=== PATIENT | female | born 1965 | race Caucasian/White ===

== ENCOUNTER 2017-09-05 09:58 | Observation (INO) | payer OTHER ==
[2017-09-05] VITALS (10 sets, daily range): BP systolic 123–140; BP diastolic 57–92; PULSE 83–112; RESP 18–20; TEMP 96.6–97.9; O2SAT 95–99
[~2017-09-05 09:58] MED LIST: BUPR150XL PO; FENO2.5C PO; HYDR25TA5 PO; LEVO-86 PO; NORV2.5T PO; PERC5TAB12 PO; ROSU20 PO
--- NOTE | 2017-09-05 10:07 | PD ---
HPI Chief Complaint: Dizziness Time Seen by Provider: 10:05 Travel History International Travel<30 days: No Contact w/Intl Traveler<30days: No Traveled to known affect area: No History of Present Illness HPI Patient complaining of chest pressure nonradiating 7 out of 10, associated with. Without any associated nausea, or shortness of breath. Allergy to phentermine Past medical history significant for hypothyroidism, hypercholesterolemia, asthma, GERD, tubal ligation and ablation, hysterectomy with bladder sling, cervical fusion PFSH Past Medical History Arthritis: Yes Asthma: Yes Blood Disorders: No Cardiovascular Problems: No High Cholesterol: Yes Diabetes: No Diminished Hearing: No Endocrine: Yes GERD: Yes Genitourinary: No Immune Disorder: No Musculoskeletal: Yes (BONE SPUR ON L5, SLIGHT BULGE ON L4) Neurologic: No Psychiatric: No Reproductive: No Respiratory: Yes Thyroid Disease: Yes (HYPOTHYROID) Menopausal: Yes : 3 Para: 3 Tubal Ligation: Yes Past Surgical History Gynecologic Surgery: Yes (TUBAL LIGATION, ABLATION) Hysterectomy: Yes (with bladder sling) Other Surgery: Yes (BLADDER SLING) Social History Alcohol Use: No Tobacco Use: No (HX OF) Substance Use: No Allergies-Medications (Allergen,Severity, Reaction): Coded Allergies: phentermine (Verified Adverse Reaction, Severe, 09/05/17) TACHYCARDIA Reported Meds & Prescriptions Reported Meds & Active Scripts Active Reported Fenofibrate 50 Mg Cap Unknown Dose PO DAILY Crestor (Rosuvastatin Calcium) 20 Mg Tab 20 Mg PO DAILY Synthroid (Levothyroxine Sodium) 137 Mcg Tab 137 Mcg PO DAILY Percocet (Oxycodone-Acetaminophen) 5-325 mg Tab 2 Tab PO TID PRN Hydrochlorothiazide 25 Mg Tab 25 Mg PO DAILY Norvasc (Amlodipine Besylate) 2.5 Mg Tab 2.5 Mg PO DAILY Wellbutrin Xl 24 HR (Bupropion HCl) 150 Mg Tab 150 Mg PO DAILY Data Data Last Documented VS Vital Signs Date Time Temp Pulse Resp B/P (MAP) Pulse Ox O2 Delivery O2 Flow Rate FiO2 09/05/17 10:35 109 128/62 (84) 09/05/17 10:35 20 95 09/05/17 10:33 Room Air 09/05/17 10:00 97.2 Orders Orders Electrocardiogram (09/05/17 10:05) B-Type Natriuretic Peptide (09/05/17 10:05) Ckmb (Isoenzyme) Profile (09/05/17 10:05) Complete Blood Count With Diff (09/05/17 10:05) Comprehensive Metabolic Panel (09/05/17 10:05) Prothrombin Time / Inr (Pt) (09/05/17 10:05) Act Partial Throm Time (Ptt) (09/05/17 10:05) Troponin I (09/05/17 10:05) Lipase (09/05/17 10:05) Chest, Single Ap (09/05/17 10:05) Ecg Monitoring (09/05/17 10:05) Bilateral Bp Monitoring (09/05/17 10:05) Iv Access Insert/Monitor (09/05/17 10:05) Oximetry (09/05/17 10:05) Aspirin Chew (Aspirin Chew) (09/05/17 10:15) Sodium Chlorid 0.9% 500 Ml Inj (Ns 500 M (09/05/17 10:15) CKMB (09/05/17 10:35) CKMB% (09/05/17 10:35) Admit Order (Ed Use Only) (09/05/17 11:21) Labs Laboratory Tests Test 09/05/17 10:35 White Blood Count 6.8 TH/MM3 Red Blood Count 4.62 MIL/MM3 Hemoglobin 13.2 GM/DL Hematocrit 39.0 % Mean Corpuscular Volume 84.4 FL Mean Corpuscular Hemoglobin 28.6 PG Mean Corpuscular Hemoglobin Concent 33.9 % Red Cell Distribution Width 12.6 % Platelet Count 232 TH/MM3 Mean Platelet Volume 7.8 FL Neutrophils (%) (Auto) 42.0 % Lymphocytes (%) (Auto) 40.9 % Monocytes (%) (Auto) 11.2 % Eosinophils (%) (Auto) 4.9 % Basophils (%) (Auto) 1.0 % Neutrophils # (Auto) 2.9 TH/MM3 Lymphocytes # (Auto) 2.8 TH/MM3 Monocytes # (Auto) 0.8 TH/MM3 Eosinophils # (Auto) 0.3 TH/MM3 Basophils # (Auto) 0.1 TH/MM3 CBC Comment DIFF FINAL Differential Comment Prothrombin Time 10.5 SEC Prothromb Time International Ratio 1.0 RATIO Activated Partial Thromboplast Time 23.1 SEC Blood Urea Nitrogen 13 MG/DL Creatinine 1.02 MG/DL Random Glucose 137 MG/DL Total Protein 6.9 GM/DL Albumin 3.7 GM/DL Calcium Level 8.3 MG/DL Alkaline Phosphatase 62 U/L Aspartate Amino Transf (AST/SGOT) 33 U/L Alanine Aminotransferase (ALT/SGPT) 46 U/L Total Bilirubin 0.3 MG/DL Sodium Level 142 MEQ/L Potassium Level 3.9 MEQ/L Chloride Level 106 MEQ/L Carbon Dioxide Level 25.8 MEQ/L Anion Gap 10 MEQ/L Estimat Glomerular Filtration Rate 57 ML/MIN Total Creatine Kinase 113 U/L Creatine Kinase MB 1.7 NG/ML Troponin I LESS THAN 0.02 NG/ML B-Type Natriuretic Peptide LESS THAN 2 PG/ML Lipase 85 U/L MDM Medical Decision Making Medical Screen Exam Complete: Yes Emergency Medical Condition: Yes Medical Record Reviewed: Yes Interpretation(s) EKG shows sinus tachycardia, 104 bpm, normal intervals, nonspecific to T-wave changes but no evidence of any ST elevation NC pattern Differential Diagnosis Anemia versus STEMI versus dehydration versus pancreatitis versus electrolyte abnormality versus hepatitis Shelton Espinoza MD Sep 05, 2017 10:07
[2017-09-05] MEDS ORDERED: SODIUM CHLORID 0.9% 500 ML INJ 500 ML IV ONE (10:15)
[2017-09-05] MEDS ORDERED: ASPIRIN 81 MG CHEW TAB PO ONE (10:15)
[2017-09-05 10:50] LABS: AUTOMATED NEUTROPHIL # 2.9 TH/MM3 (1.8-7.7); BASOPHIL # 0.1 TH/MM3 (0-0.2); EOSINOPHIL # 0.3 TH/MM3 (0-0.4); EOSINOPHIL % 4.9 % (0.0-4.0); HEMOGLOBIN 13.2 GM/DL (11.6-15.3); LYMPH % 40.9 % (9.0-44.0); LYMPHOCYTE # 2.8 TH/MM3 (1.0-4.8); MEAN CELL VOLUME 84.4 FL (80.0-100.0); MEAN CORPUSCULAR HEMOGLOBIN 28.6 PG (27.0-34.0); MEAN CORPUSCULAR HGB CONC 33.9 % (32.0-36.0); MEAN PLATELET VOLUME 7.8 FL (7.0-11.0); MONO % 11.2 % (0.0-8.0); MONOCYTE # 0.8 TH/MM3 (0-0.9); PLATELET COUNT 232 TH/MM3 (150-450); RED BLOOD COUNT 4.62 MIL/MM3 (4.00-5.30); RED CELL DISTRIBUTION WIDTH 12.6 % (11.6-17.2); WHITE BLOOD COUNT 6.8 TH/MM3 (4.0-11.0)
[2017-09-05 11:01] LABS: PROTHROMBIN TIME - PATIENT 10.5 SEC (9.8-11.6)
[2017-09-05 11:02] LABS: ALBUMIN 3.7 GM/DL (3.4-5.0); AST (GOT) 33 U/L (15-37); BICARBONATE 25.8 MEQ/L (21.0-32.0); BLOOD UREA NITROGEN 13 MG/DL (7-18); CALCIUM 8.3 MG/DL (8.5-10.1); CHLORIDE 106 MEQ/L (98-107); CREATININE 1.02 MG/DL (0.50-1.00); GLOMERULAR FILTRATION RATE 57 ML/MIN (>89); GLUCOSE,RANDOM 137 MG/DL (74-106); SODIUM (NA) 142 MEQ/L (136-145)
[2017-09-05 11:07] LABS: ALKALINE PHOSPHATASE 62 U/L (45-117); ALT (GPT) 46 U/L (10-53); TOTAL BILIRUBIN ADULT 0.3 MG/DL (0.2-1.0); TOTAL PROTEIN 6.9 GM/DL (6.4-8.2); TROPONIN I LESS THAN 0.02 NG/ML (0.02-0.05)
--- NOTE | 2017-09-05 11:19 | RADRPT ---
EXAM DATE: 09/05/2017 10:59 AM EDT AGE/SEX: 51 years / Female INDICATIONS: Chest pain and swelling in lower extreme ties. CLINICAL DATA: This is the patient's initial encounter. Patient reports that signs and symptoms have been present for 3 days and indicates a pain score of 7/10. MEDICAL/SURGICAL HISTORY: Hypertension. Asthma. Hypercholesterolemia. None. COMPARISON: No prior exams available for comparison. FINDINGS: ACDF hardware overlies the cervical spine. The lungs are clear. Heart size normal. Osseous structures are intact. CONCLUSION: Clear lungs. Electronically signed by: Cullen Jimenez MD 09/05/2017 11:18 AM EDT
--- NOTE | 2017-09-05 12:06 | HHI.HP ---
HPI Primary Care Physician Unknown Chief Complaint Chest pain History of Present Illness This is a 51-year-old female history of hypertension, hyperlipidemia, hypothyroidism, chronic back pain, bipolar disorder that presents to ED with complaint of chest discomfort. Patient states she was in the emergency department in the [place] but declined transportation to the chest pain center as she had to care for her granddaughter that has cystic fibrosis. She left AMA. She then went to this [facility] and was discharged from the ED. She is then starts to cry and states that her psychiatrist will not listen to her. States that she believes all her symptoms are related to her medications being changed on August 17. She had been on Cymbalta for chronic pain for years but her psychiatrist thought that she should discontinue that and start on Wellbutrin. She saw the psychiatrist earlier this week and states that it is not a medication causing her problems. She states that she has had intermittent chest discomfort for the past week. She points to the center of her chest. Feels as if it is a gas burning feeling. Nothing in particular seems to bring on discomfort. When it occurs will last for 15 minutes. At times she is short of breath and nauseous with it. Has tried [id number] remedies for the discomfort. Currently is not having discomfort in her chest. Review of Systems General: Patient denies fevers, chills, and recent travel. HEENT: Patient denies headache, sore throat, difficulty swallowing. Cardiovascular: Has the chest discomfort as mentioned above. Denies sensation of heart beating rapidly or irregularly. No syncope. Denies diaphoresis. Respiratory: She has had shortness of breath. Denies inspirational chest discomfort. Denies coughing wheezing or hemoptysis. GI: She has felt nauseous. Patient denies vomiting, diarrhea, abdominal pain, bloody stools. Musculoskeletal: Chronic back pain. Chronic neck pain. Segments of generalized arthritis pains. Patient denies joint edema. Denies calf pain or edema. Neurovascular: Patient denies numbness, tingling, weakness in extremities. Denies headache. Endocrine: Denies polyuria and polydipsia. Hematologic: Denies easy bruising. Skin: Denies rash or itching. Past Family Social History Allergies: Coded Allergies: phentermine (Verified Adverse Reaction, Severe, 09/05/17) TACHYCARDIA Past Medical History Hypertension, hyperlipidemia, hypothyroidism, chronic back pain, chronic neck pain, bipolar disorder. Denies diabetes and known CAD. Past Surgical History Cervical fusion. Tubal ligation. Bladder sling. Reported Medications Reported Meds & Active Scripts Active Reported Fenofibrate 50 Mg Cap Unknown Dose PO DAILY Crestor (Rosuvastatin Calcium) 20 Mg Tab 20 Mg PO DAILY Synthroid (Levothyroxine Sodium) 137 Mcg Tab 137 Mcg PO DAILY Percocet (Oxycodone-Acetaminophen) 5-325 mg Tab 2 Tab PO TID PRN Hydrochlorothiazide 25 Mg Tab 25 Mg PO DAILY Norvasc (Amlodipine Besylate) 2.5 Mg Tab 2.5 Mg PO DAILY Wellbutrin Xl 24 HR (Bupropion HCl) 150 Mg Tab 150 Mg PO DAILY Family History Denies family history of coronary disease. Social History Quit smoking 13 years ago but prior that she smoked 1 pack of cigarettes daily for about 20 years. Denies alcohol or illicit drug use. She is . 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 Physical Exam Vital Signs Vital Signs Date Time Temp Pulse Resp B/P (MAP) Pulse Ox O2 Delivery O2 Flow Rate FiO2 09/05/17 10:35 109 128/62 (84) 09/05/17 10:35 109 20 128/62 (84) 95 09/05/17 10:33 96 Room Air 09/05/17 10:30 109 131/64 (86) 09/05/17 10:30 108 18 131/64 (86) 96 Room Air 09/05/17 10:13 99 09/05/17 10:00 97.2 112 18 140/92 (108) 96 Physical Exam GENERAL: Patient appears very anxious. When I entered the room she was adjusting all of the cables and cords never connected to the monitor and is doing so appearing very anxious. This is a well-nourished, well-developed patient, in no apparent distress. Patient speaks in clear complete sentences. Patient is pleasant. HEENT: Head is atraumatic and normocephalic. Neck is supple without lymphadenopathy and trachea is midline. No JVD or carotid bruits. CARDIOVASCULAR: Regular rate and rhythm without murmurs, gallops, or rubs. RESPIRATORY: Clear to auscultation. Breath sounds equal bilaterally. No wheezes , rales, or rhonchi. Chest wall is tender. No use of accessory muscles. GASTROINTESTINAL: Abdomen is nontender, nondistended. Abdomen soft. No obvious pulsatile mass or bruit. No CVA tenderness. Strong femoral pulses bilaterally. Normal bowel sounds in all quadrants. MUSCULOSKELETAL: Patient is moving upper and lower extremities freely. No calf tenderness or edema, no Homans sign. Strong pulses in upper and lower extremities. NEUROLOGICAL: Patient is alert and oriented. Cranial nerves 2-12 are grossly intact. No focal deficits and speech is clear. SKIN: No rash and turgor is normal. Laboratory Laboratory Tests Test 09/05/17 10:35 White Blood Count 6.8 Red Blood Count 4.62 Hemoglobin 13.2 Hematocrit 39.0 Mean Corpuscular Volume 84.4 Mean Corpuscular Hemoglobin 28.6 Mean Corpuscular Hemoglobin Concent 33.9 Red Cell Distribution Width 12.6 Platelet Count 232 Mean Platelet Volume 7.8 Neutrophils (%) (Auto) 42.0 Lymphocytes (%) (Auto) 40.9 Monocytes (%) (Auto) 11.2 Eosinophils (%) (Auto) 4.9 Basophils (%) (Auto) 1.0 Neutrophils # (Auto) 2.9 Lymphocytes # (Auto) 2.8 Monocytes # (Auto) 0.8 Eosinophils # (Auto) 0.3 Basophils # (Auto) 0.1 CBC Comment DIFF FINAL Differential Comment Prothrombin Time 10.5 Prothromb Time International Ratio 1.0 Activated Partial Thromboplast Time 23.1 Blood Urea Nitrogen 13 Creatinine 1.02 Random Glucose 137 Total Protein 6.9 Albumin 3.7 Calcium Level 8.3 Alkaline Phosphatase 62 Aspartate Amino Transf (AST/SGOT) 33 Alanine Aminotransferase (ALT/SGPT) 46 Total Bilirubin 0.3 Sodium Level 142 Potassium Level 3.9 Chloride Level 106 Carbon Dioxide Level 25.8 Anion Gap 10 Estimat Glomerular Filtration Rate 57 Total Creatine Kinase 113 Creatine Kinase MB 1.7 Troponin I LESS THAN 0.02 B-Type Natriuretic Peptide LESS THAN 2 Lipase 85 Result Diagram: 09/05/17 1035 09/05/17 1035 Imaging Last 24 hours Impressions Chest X-Ray 09/05/17 1005 Signed Impressions: CONCLUSION: Clear lungs. Course Initial EKG is sinus tachycardia rate [address] segment depressions or elevations. Caprini VTE Risk Assessment Caprini VTE Risk Assessment: No/Low Risk (score <= 1) Caprini Risk Assessment Model Point Value = 1 Point Value = 2 Point Value = 3 Point Value = 5 Age 41-60 Minor surgery BMI > 25 kg/m2 Swollen legs Varicose veins or History of unexplained or recurrent spontaneous Oral contraceptives or hormone replacement Sepsis (< 1 month) Serious lung disease, including pneumonia (< 1 month) Abnormal pulmonary function Acute myocardial infarction Congestive heart failure (< 1 month) History of inflammatory bowel disease Medical patient at bed rest Age 61-74 Arthroscopic surgery Major open surgery (> 45 min) Laparoscopic surgery (> 45 min) Malignancy Confined to bed (> 72 hours) Immobilizing plaster cast Central venous access Age >= 75 History of VTE Family history of VTE Factor V Leiden Prothrombin [id number] Lupus anticoagulant Anticardiolipin antibodies Elevated serum homocysteine Heparin-induced thrombocytopenia Other congenital or acquired thrombophilia Stroke (< 1 month) Elective arthroplasty Hip, pelvis, or leg fracture Acute spinal cord injury (< 1 month) Prophylaxis Regimen Total Risk Factor Score Risk Level Prophylaxis Regimen 0-1 Low Early ambulation 2 Moderate Order ONE of the following: *Sequential Compression Device (SCD) *Heparin 5000 units SQ BID 3-4 Higher Order ONE of the following medications: *Heparin 5000 units SQ TID *Enoxaparin/Lovenox 40 mg SQ daily (WT < 150 kg, CrCl > 30 mL/min) *Enoxaparin/Lovenox 30 mg SQ daily (WT < 150 kg, CrCl > 10-29 mL/min) *Enoxaparin/Lovenox 30 mg SQ BID (WT < 150 kg, CrCl > 30 mL/min) AND/OR *Sequential Compression Device (SCD) 5 or more Highest Order ONE of the following medications: *Heparin 5000 units SQ TID (Preferred with Epidurals) *Enoxaparin/Lovenox 40 mg SQ daily (WT < 150 kg, CrCl > 30 mL/min) *Enoxaparin/Lovenox 30 mg SQ daily (WT < 150 kg, CrCl > 10-29 mL/min) *Enoxaparin/Lovenox 30 mg SQ BID (WT < 150 kg, CrCl > 30 mL/min) AND *Sequential Compression Device (SCD) Assessment and Plan Assessment and Plan * Chest pain patient will continue to have serial cardiac enzymes and EKGs for ruling out purposes. She will be seen by Dr. Alvarez of cardiology in the chest pain center at that time plan will be determined. Patient will need follow-up with her PCP and her psychiatrist. * Bipolar disorder: Continue medication. * Hypertension: Continue medication. * Hyperlipidemia: Continue medication. * Hypothyroidism: Continue medication. * Chronic back pain: She will need follow-up with her orthopedist that she has been seeing as well as her primary care physician. Patient is stable at this time. She is agreeable to this plan. Lance Haddad Sep 05, 2017 12:06
[2017-09-05] MEDS ORDERED: RESP: ALBUTEROL 2.5 MG/IPRATROPIUM 0.5 MG NEB (PRN) INH (12:15)
[2017-09-05] MEDS ORDERED: ACETAMINOPHEN/HYDROcodone 325 MG/7.5 MG TAB PO PRN (12:15)
[2017-09-05] MEDS ORDERED: [UNRECOGNIZED DRUG - REMARK] SCH (12:15)
[2017-09-05] MEDS ORDERED: cloNIDine HCL 0.1 MG TAB PO PRN (12:15)
[2017-09-05] MEDS ORDERED: ONDANSETRON ODT 4 MG TAB PO PRN (12:15)
[2017-09-05] MEDS ORDERED: ALPRAZolam 0.25 MG TAB PO PRN (12:15)
[2017-09-05] MEDS ORDERED: ACETAMINOPHEN 500 MG CPLT PO PRN (12:15)
--- NOTE | 2017-09-05 12:24 | PD.CARD.PN ---
Subjective Subjective Remarks 51-year-old lady he was recently in [place] and left AMA, was in [place] and left AMA and is now here. She is bipolar and clearly in a manic state currently. She has been under treatment for back problems by Dr. Luciano and psychiatric issues with Dr. Rodgers. She believes some of her current problems are a result of change in her Cymbalta and Wellbutrin. She has been having severe headaches which seem to precipitate palpitation and now recently chest pain with palpitations. The chest pain is described as a squeezing pain but also is a "carving" pain and as in the congestion-like pain with some radiation into the arm. She is also become concerned because her feet and legs have been swelling and she has pain in her feet. She also reports that her balance has not been good lately. She has a somewhat disjointed historian as might be expected with her history and 3 times during discussion gave me different scenarios for her medications. Objective Medications Current Medications Medications (Trade) Dose Ordered Sig/[place]vy Route Start Time Stop Time Status Last Admin (Tylenol) 500 mg Q4H PRN PO 09/05/17 12:15 ([place] 7.5-325 Mg) 1 tab Q4H PRN PO 09/05/17 12:15 (Protonix) 40 mg DAILY PO 09/05/17 12:15 UNV (Aspirin) 325 mg DAILY PO 09/06/17 09:00 UNV (Xanax) 0.25 mg Q8H PRN PO 09/05/17 12:15 UNV (Zofran Odt) 4 mg Q6H PRN PO 09/05/17 12:15 UNV (Duoneb Neb) 1 ampule Q4HR NEB PRN INH 09/05/17 12:15 UNV (Catapres) 0.1 mg Q4H PRN PO 09/05/17 12:15 UNV Vital Signs / I&O Vital Signs Date Time Temp Pulse Resp B/P (MAP) Pulse Ox O2 Delivery O2 Flow Rate FiO2 09/05/17 10:35 109 128/62 (84) 09/05/17 10:35 109 20 128/62 (84) 95 09/05/17 10:33 96 Room Air 09/05/17 10:30 109 131/64 (86) 09/05/17 10:30 108 18 131/64 (86) 96 Room Air 09/05/17 10:13 99 09/05/17 10:00 97.2 112 18 140/92 (108) 96 Physical Exam Obese woman sitting in the bed obviously somewhat hyperactive Neck is supple no JVD masses nodes or bruits Chest diminished breath sounds but clear to auscultation with no rales wheezes or rhonchi Cardiovascular regular rhythm slightly tachycardic no gallop rub or murmur Extremities reveal 1+ pitting edema in the pretibial areas Laboratory Laboratory Tests Test 09/05/17 10:35 White Blood Count 6.8 TH/MM3 Red Blood Count 4.62 MIL/MM3 Hemoglobin 13.2 GM/DL Hematocrit 39.0 % Mean Corpuscular Volume 84.4 FL Mean Corpuscular Hemoglobin 28.6 PG Mean Corpuscular Hemoglobin Concent 33.9 % Red Cell Distribution Width 12.6 % Platelet Count 232 TH/MM3 Mean Platelet Volume 7.8 FL Neutrophils (%) (Auto) 42.0 % Lymphocytes (%) (Auto) 40.9 % Monocytes (%) (Auto) 11.2 % Eosinophils (%) (Auto) 4.9 % Basophils (%) (Auto) 1.0 % Neutrophils # (Auto) 2.9 TH/MM3 Lymphocytes # (Auto) 2.8 TH/MM3 Monocytes # (Auto) 0.8 TH/MM3 Eosinophils # (Auto) 0.3 TH/MM3 Basophils # (Auto) 0.1 TH/MM3 CBC Comment DIFF FINAL Differential Comment Prothrombin Time 10.5 SEC Prothromb Time International Ratio 1.0 RATIO Activated Partial Thromboplast Time 23.1 SEC Blood Urea Nitrogen 13 MG/DL Creatinine 1.02 MG/DL Random Glucose 137 MG/DL Total Protein 6.9 GM/DL Albumin 3.7 GM/DL Calcium Level 8.3 MG/DL Alkaline Phosphatase 62 U/L Aspartate Amino Transf (AST/SGOT) 33 U/L Alanine Aminotransferase (ALT/SGPT) 46 U/L Total Bilirubin 0.3 MG/DL Sodium Level 142 MEQ/L Potassium Level 3.9 MEQ/L Chloride Level 106 MEQ/L Carbon Dioxide Level 25.8 MEQ/L Anion Gap 10 MEQ/L Estimat Glomerular Filtration Rate 57 ML/MIN Total Creatine Kinase 113 U/L Creatine Kinase MB 1.7 NG/ML Troponin I LESS THAN 0.02 NG/ML B-Type Natriuretic Peptide LESS THAN 2 PG/ML Lipase 85 U/L Imaging Last 24 hours Impressions Chest X-Ray 09/05/17 1005 Signed Impressions: CONCLUSION: Clear lungs. Assessment and Plan Assessment and Plan Situation was discussed with the physician gas or petroleum operator the patient will be ruled out using a full chest pain center protocol including nuclear stress test. However it strongly suspicion that she may leave AMA in the meantime. She was reminded of the importance of following up with Dr. Rodgers for readjustment balance of her medications. Vazquez Alvarez MD Sep 05, 2017 12:24
[2017-09-05] MEDS: PANTOPRAZOLE SOD 40 MG DELAYED RELEASE TAB PO SCH (13:32)
[2017-09-05 14:25] LABS: TROPONIN I LESS THAN 0.02 NG/ML (0.02-0.05)
[2017-09-05 17:23] LABS: TROPONIN I LESS THAN 0.02 NG/ML (0.02-0.05)
[2017-09-06 04:03] VITALS: BP 141/59; PULSE 84; RESP 18; TEMP 97.9; O2SAT 95
[2017-09-06] MEDS ORDERED: LEVOTHYROXINE SODIUM 25 MCG TAB PO SCH (06:00)
[2017-09-06] MEDS ORDERED: LEVOTHYROXINE SODIUM 112 MCG TAB PO SCH (06:00)
[2017-09-06 07:00] VITALS: PULSE 93
[2017-09-06 07:20] VITALS: O2SAT 96
[2017-09-06 07:25] VITALS: BP 141/72; PULSE 83; RESP 16; TEMP 97.8; O2SAT 96
[2017-09-06] MEDS ORDERED: NON-FORMULARY DRUG (Levothyroxine (Synthroid) 137 MCG) PO SCH (09:00)
[2017-09-06] MEDS ORDERED: amLODIPine BESYLATE 5 MG TAB PO SCH (09:00)
[2017-09-06] MEDS ORDERED: HYDROCHLOROTHIAZIDE 25 MG TAB PO SCH (09:00)
[2017-09-06] MEDS ORDERED: ATORVASTATIN 40 MG TAB PO SCH (09:00)
[2017-09-06] MEDS ORDERED: ASPIRIN 325 MG TAB PO SCH (09:00)
[2017-09-06] MEDS ORDERED: buPROPion HCL 150 MG SUSTAINED RELEASE TAB PO SCH (09:00)
[2017-09-06] MEDS ORDERED: REGADENOSON INJ 0.4 MG/5 ML SYR ONE (09:36)
--- NOTE | 2017-09-06 10:55 | RADRPT ---
EXAM DATE: 09/06/2017 10:46 AM EDT AGE/SEX: 51 years / Female INDICATIONS:Angina. . Mid chest pain for two days. CLINICAL DATA: This is the patient's initial encounter. Patient reports that signs and symptoms have been present for 2 days and indicates a pain score of 7/10. MEDICAL/SURGICAL HISTORY: Hypertension. Hypothyroidism. Tubal ligation. Fusion, cervical. COMPARISON: No prior exams available for comparison. No external comparison. DOSE: 26.6 mCi Tc 99m Myoview at rest 8.8 mCi [id number] at stress 0.4 mg Lexiscan STRESS SYMPTOMS: Dyspnea, stomach pain, nausea and headache. EJECTION FRACTION: 66 % TECHNIQUE: The patient underwent pharmacologic stress with infusion of prescribed dose. Continuous ECG tracing was monitored during stress. Gated SPECT imaging was performed after stress and conventi onal SPECT imaging was performed at rest. The examination was performed on a SPECT /CT scanner, both attenuation and non-corrected datasets were reviewed. FINDINGS: Distribution: The maximum perfused segment at stress is in the anterolateral wall. Perfusion Study: The pattern of perfusion at stress is within normal limits. Gated Study: There are intact wall motion and wall thickening without hypokinetic or dyskinetic segm ents. The ejection fraction is calculated at 66%. RISK CATEGORY: Low CONCLUSION: 1. No reversible defects observed to suggest acute ischemia. Electronically signed by: Rai Mcnair MD 09/06/2017 10:54 AM EDT
[2017-09-06 11:45] VITALS: BP 135/63; PULSE 92; RESP 19; TEMP 98.2; O2SAT 98
--- NOTE | 2017-09-06 11:56 | HHI.DCPOC ---
Discharge Care Plan Diagnosis: (1) Chest pain, atypical (2) Hypertension (3) Hyperlipidemia Goals to Promote Your Health * To prevent worsening of your condition and complications * To maintain your health at the optimal level Directions to Meet Your Goals Take your medications as prescribed Follow your dietary instruction Follow activity as directed Keep your appointments as scheduled Take your immunizations and boosters as scheduled If your symptoms worsen call your PCP, if no PCP go to Urgent Care Center or Emergency Room Smoking is Dangerous to Your Health. Avoid second hand smoke Call the 24-hour hour crisis hotline for domestic abuse at Lance Haddad Sep 06, 2017 11:56
[2017-09-06] MEDS: PANTOPRAZOLE SOD 40 MG DELAYED RELEASE TAB PO SCH (12:43)
--- NOTE | 2017-09-07 18:34 | TR ---
Date Performed: 09/06/2017 Time Performed: 09:42:58 DOCTOR: Evelyn Bermeo DRUG LIST: CLINICAL HISTORY: REASON FOR TEST: CHEST PAIN REASON FOR ENDING: OBSERVATION: CONCLUSION: Lexiscan stress test was performed under standard four minute protocol. Radionuclid e was injected one minute prior to ending the test. No electrocardiographic abormalities were present to suggest ischemia. Nuclear imaging and interpretation are pending. COMMENTS: No ischemia
--- NOTE | 2017-09-07 18:37 | EKG ---
Date Performed: 09/05/2017 Time Performed: 09:12:49 PTAGE: 51 years EKG: SINUS TACHYCARDIA LOW QRS VOLTAGE IN PRECORDIAL LEADS NONSPECIFIC T-WAVE ABNORMALITY ABNORM AL RHYTHM ECG Since PREVIOUS TRACING , no significant change noted PREVIOUS TRACIN03/26/2008 14.53 DOCTOR: Evelyn Bermeo Interpretating Date/Time 09/07/2017 18:36:38
--- NOTE | 2017-09-07 18:38 | EKG ---
Date Performed: 09/05/2017 Time Performed: 13:44:45 PTAGE: 51 years EKG: Sinus rhythm LOW QRS VOLTAGE IN PRECORDIAL LEADS NONSPECIFIC T-WAVE ABNORMALITY BORDERLINE ECG Since PREVIOUS TRACING , no significant change noted DOCTOR: Evelyn Bermeo Interpretating Date/Time 09/07/2017 18:36:52
--- NOTE | 2017-09-07 18:38 | EKG ---
Date Performed: 09/05/2017 Time Performed: 16:30:37 PTAGE: 51 years EKG: Sinus rhythm WITH SINUS ARRHYTHMIA NONSPECIFIC T-WAVE ABNORMALITY BORDERLINE ECG Since PREVIOUS TRACING , no significant change noted PREVIOUS TRACIN09/05/2017 13.44 DOCTOR: Evelyn Bermeo Interpretating Date/Time 09/07/2017 18:37:12
== END 2017-09-06 13:25 | disposition home or self-care (01) ==
LOC: NEPE 09:58 → NEDA 11:24 → NEPHCDU 12:41
PROVIDERS: ADMIT Internal Medicine Interventional Cardiology; ATTEND Internal Medicine Interventional Cardiology
DX: R07.89 Other chest pain (principal); R06.02 Shortness of breath; R11.0 Nausea; F31.9 Bipolar disorder, unspecified; I10 Essential (primary) hypertension; R00.0 Tachycardia, unspecified; R51 Headache; E78.5 Hyperlipidemia, unspecified; E03.9 Hypothyroidism, unspecified; J45.909 Unspecified asthma, uncomplicated; K21.9 Gastro-esophageal reflux disease without esophagitis; M54.9 Dorsalgia, unspecified; G89.29 Other chronic pain; M19.90 Unspecified osteoarthritis, unspecified site; Z79.899 Other long term (current) drug therapy; Z87.891 Personal history of nicotine dependence
CPT/HCPCS: 71045; 78452; 80053; 82550; 82552; 83690; 83880; 84484; 85025; 85610; 85730; 93005; 93017; 96360; 99285; A9502; G0378; J2785; J7040